=== PATIENT | female | born 1930 | race Caucasian/White ===

== ENCOUNTER 2017-10-31 10:26 | Observation (INO) | payer MEDICARE, OTHER ==
[2017-10-31 10:51] LABS: #Eosinphils 0.3 thou/uL (0.0-0.7); #Lymphocytes 1.9 thou/uL (1.20-3.40); #Monocytes 1.1 thou/uL (0.11-0.59); #Neutrophils 5.8 thou/uL (1.40-6.50); %Basophils 0.2 % (0.0-1.0); %Eosinophils 3.3 % (0.0-10.0); %Lymphocytes 21.4 % (21.0-51.0); %Monocytes 11.6 % (0.0-10.0); %Neutrophils 63.6 % (42.0-75.0); Mean Corpuscular HGB CONC 30.7 g/dL (32.0-36.0); Mean Corpuscular Hemoglobin 27.4 pg (27.0-31.0); Mean Corpuscular Volume 89.2 fl (81.0-99.0); Mean Platelet Volume 7.5 fL (7.4-10.4); Platelet Count 305 thou/uL (130-400); Red Blood Cell (RBC) Count 4.75 mill/uL (4.20-5.40); White Blood Cell (WBC) Count 9.1 thou/uL (4.8-10.8)
[2017-10-31 10:59] LABS: INR-International Normal Ratio 1.1; Prothrombin Time 13.8 SEC (12.0-14.7)
[2017-10-31 11:00] LABS: PTT 36.8 SEC (22.9-36.1)
--- NOTE | 2017-10-31 11:16 | RAD ---
CHEST ONE VIEW: History: Chest pain. Comparison: 06-14-17 FINDINGS: Heart size is at upper limits of normal. Lungs are mildly hyperinflated. No focal airspace consolidat ion, pneumothorax or effusion. No displaced rib fracture. IMPRESSION: No acute intrathoracic abnormality. No significant change. POS: OFF
[2017-10-31 11:18] LABS: ALT (SGPT) 8 U/L (8-55); AST (SGOT) 20 U/L (5-34); Albumin 3.7 g/dL (3.4-4.8); Alkaline Phosphatase 63 U/L (40-150); Anion Gap 13 mmol/L (10-20); BUN (Urea Nitrogen) 23 mg/dL (9.8-20.1); Bilirubin, Total 0.4 mg/dL (0.2-1.2); CK (CPK) 141 U/L (29-168); Calc. Creatinine Clearance 0 mL/min (70-130); Calcium 9.5 mg/dL (7.8-10.44); Carbon Dioxide 24 mmol/L (23-31); Chloride 104 mmol/L (98-107); Estimated GFR-MDRD 46; Globulin 3.4 g/dL (2.4-3.5); Glucose 86 mg/dL (83-110); Lipase 47 U/L (8-78); Protein, Total 7.1 g/dL (6.0-8.3); Sodium 137 mmol/L (136-145)
[2017-10-31 11:22] LABS: Troponin I Less than 0.010 ng/mL (< 0.028)
[2017-10-31] MEDS ORDERED: Aspirin 325 MG TAB ONE (13:21)
[2017-10-31] MEDS ORDERED: Nitroglycerin 2% Ointment 1 INCH/1 GM Packet ONE (13:21)
[2017-10-31 14:22] LABS: Troponin I Less than 0.010 ng/mL (< 0.028)
[2017-10-31] MEDS ORDERED: Nitroglycerin 0.4 MG TAB (25 Tab Bottle) PO PRN (14:49)
[2017-10-31] MEDS ORDERED: Dextrose 50% Abboject 50 ML SYRINGE SLOW IVP PRN (14:49)
[2017-10-31] MEDS ORDERED: hydrALAZINE 20 MG/ML VIAL SLOW IVP PRN (14:49)
[2017-10-31] MEDS ORDERED: Senokot 8.6 MG TAB PO PRN (14:49)
[2017-10-31] MEDS ORDERED: Insulin Regular 300 UNITS/3 ML VIAL SC PRN ×2 (14:49)
[2017-10-31] MEDS ORDERED: Dextrose 5% in Water 1,000 ML IV PRN (14:49)
[2017-10-31] MEDS ORDERED: Labetalol HCl 100 MG/20 ML VIAL SLOW IVP PRN (14:49)
[2017-10-31] MEDS ORDERED: Ondansetron ODT 4 MG TAB PO PRN (14:49)
[2017-10-31] MEDS ORDERED: Ondansetron HCl/PF 4 MG/2 ML Vial IVP PRN (14:49)
--- NOTE | 2017-10-31 17:48 | HP ---
DATE OF ADMISSION: 10/31/2017 PRIMARY CARE PHYSICIAN: Dr. Raygoza. CHIEF COMPLAINT: Chest discomfort. HISTORY OF PRESENT ILLNESS: Patient is an 87-year-old female with coronary artery disease, status po st [place] in 2008, hypertension, and hyperlipidemia. She presented to the emergency room with chest disc omfort. The chest discomfort started yesterday around 3:00 p.m. while she was resting. It was subst ernal, radiating to her left arm. She also had some shortness of breath at the same time. No lighth eadedness, dizziness, palpitations, or syncope reported. She denies any recent immobilization and tr abby. She denies any heartburn or dyspepsia. In the emergency room, her initial vital signs showed temperature 98.2, respirations 16, pulse rate o f 77 with blood pressure 153/72 with O2 saturation of 97% on room air. Her initial EKG showed sinus rhythm with PVCs, first degree AV block with IL interval of 212-millisecond without significant ST-T wave changes. She received aspirin with 1 inch nitro patch in the emergency room. She is chest pain free at this time. PAST MEDICAL HISTORY: 1. Coronary artery disease, status post TX in 2008. 2. Anxiety, depression. 3. Hypertension. 4. Hyperlipidemia. 5. History of syncope secondary to dehydration in 2011. 6. CKD stage 3. 7. Macular degeneration. PAST SURGICAL HISTORY: 1. Back surgery. 2. Bilateral cataract surgery. 3. Cardiac catheterization in 2008 at [facility] in [place]. Report is unavailable at this ti me. ALLERGIES: Patient is allergic to PENICILLIN, SULFA, HYDROCODONE, DIAZEPAM, CODEINE, and XANAX. CURRENT HOME MEDICATIONS: The patient does not remember any home medications. We will try to call [facility] facility for accurate list of medications. FAMILY HISTORY: Mother of complications from diabetes. Father of TX at age of 61. SOCIAL HISTORY: Patient currently lives in a long-term nursing facility. No smoking, alcohol or gabby g use reported. CODE STATUS: FULL CODE and makes a decision with the help of her family. Please note there is no fa soham at the bedside at this time. PHYSICAL EXAMINATION: VITAL SIGNS: As discussed above. GENERAL: An 87-year-old female in no apparent distress. Denies any chest discomfort at this time. HEENT: Head is atraumatic, normocephalic, sclerae are anicteric. Moist mucous membrane, no oral les ion. NECK: Supple, no JVD appreciated. No carotid bruit. LUNGS: Clear to auscultation bilaterally. No wheezing, rales or rhonchi. HEART: S1, S2 present. Regular rate and rhythm, 2/6 systolic ejection murmur over the aortic area. No parasternal heaves or pulsation. ABDOMEN: Soft, nontender, bowel sounds present. EXTREMITIES: No edema or calf tenderness. NEUROLOGIC: Grossly nonfocal, moves all four extremities. PSYCHIATRY: Alert, awake, oriented x3. SKIN: Warm and dry. LYMPH NODES: No palpable lymph nodes in the neck. PERIPHERAL VASCULAR: Radial pulses palpable bilaterally. MUSCULOSKELETAL: No joint swelling or tenderness. LABORATORY FINDINGS: CBC showed WBC of 9.1 with hemoglobin of 13, platelet count 305. Chemistries s howed sodium 137, potassium 4, chloride 104, bicarbonate 24, BUN 23, creatinine 1.12, glucose 86. Tr oponins were negative. Chest x-ray by my review was negative for infiltrate. EKG by my review as jo-ann stewartussed above. IMPRESSION: 1. Chest discomfort, rule out acute coronary syndrome. 2. Coronary artery disease, status post myocardial infarction in 2008. 3. Hypertension. 4. Hyperlipidemia. 5. Gastroesophageal reflux disease. 6. Dementia. 7. Chronic kidney disease stage 3. 8. Hypothyroidism. 9. Macular degeneration. PLAN: The patient will be monitored in the telemetry unit. Cardiology will be consulted. She had a n echocardiogram in 2015 that showed moderate tricuspid valve regurgitation and moderate mitral valve regurgitation. The ejection fraction was normal at that time. She also had a stress test in which was negative for reversible ischemia. No wall motion abnormality. We will confirm home medi cations and start accordingly. Patient was on Plavix last admission. Cardiology will be consulted. We will try to obtain an accurate list of medications accurate list of medications. The patient karen l be kept n.p.o. past midnight for possible intervention if patient agrees. She was admitted in [facility] in she was admitted in June of last year for similar complaint. Patient declined cardiac c atheterization at that time. Plan of care was discussed with the patient in detail. She stated understanding.
[2017-10-31] MEDS: Docusate 100 MG CAP PO SCH (21:05)
[2017-10-31] MEDS: Famotidine 20 MG TAB PO SCH (21:06)
[2017-11-01] MEDS: Acetaminophen 325 MG TAB PO PRN (01:09)
[2017-11-01 05:20] LABS: #Eosinphils 0.2 thou/uL (0.0-0.7); #Lymphocytes 1.4 thou/uL (1.20-3.40); #Monocytes 0.8 thou/uL (0.11-0.59); #Neutrophils 3.3 thou/uL (1.40-6.50); %Basophils 0.8 % (0.0-1.0); %Eosinophils 4.3 % (0.0-10.0); %Lymphocytes 24.6 % (21.0-51.0); %Monocytes 13.4 % (0.0-10.0); Hemoglobin 12.5 g/dL (12.0-16.0); Mean Corpuscular HGB CONC 30.9 g/dL (32.0-36.0); Mean Corpuscular Hemoglobin 27.6 pg (27.0-31.0); Mean Corpuscular Volume 89.1 fl (81.0-99.0); Mean Platelet Volume 7.9 fL (7.4-10.4); Platelet Count 282 thou/uL (130-400); RBC Distribution Width 13.9 % (11.5-14.5); Red Blood Cell (RBC) Count 4.54 mill/uL (4.20-5.40); White Blood Cell (WBC) Count 5.9 thou/uL (4.8-10.8)
[2017-11-01 05:33] LABS: Anion Gap 12 mmol/L (10-20); BUN (Urea Nitrogen) 23 mg/dL (9.8-20.1); Calc. Creatinine Clearance 34 mL/min (70-130); Calcium 9.3 mg/dL (7.8-10.44); Carbon Dioxide 24 mmol/L (23-31); Chloride 105 mmol/L (98-107); Estimated GFR-MDRD 46; Glucose 87 mg/dL (83-110); Potassium 4.1 mmol/L (3.5-5.1); Sodium 137 mmol/L (136-145)
[2017-11-01] MEDS: Docusate 100 MG CAP PO SCH ×2 (08:23→20:38)
[2017-11-01] MEDS ORDERED: Aspirin 81 mg Enteric Coated Tablet PO SCH (09:00)
[2017-11-01] MEDS ORDERED: Polyethylene Glycol 3350 17 GM Packet PO PRN (09:16)
[2017-11-01] MEDS ORDERED: Clopidogrel Bisulfate 75 MG TAB PO SCH (09:45)
[2017-11-01] MEDS ORDERED: Gabapentin 300 MG CAP PO SCH (09:45)
--- NOTE | 2017-11-01 13:57 | PDOC.PN ---
- Subjective Encounter Start Date: 11/01/17 Encounter Start Time: 10:30 Patient seen and examined. No new complaints. No overnight events. Denies any CP /SOB/diaphoresis/palpitations. - Objective Resuscitation Status: Resuscitation Status FULL:Full Resuscitation MAR Reviewed: Yes Vital Signs & Weight: Vital Signs (12 hours) Temp Pulse Resp BP BP Pulse Ox 11/01/17 11:52 98.5 F 70 16 102/55 L 97 11/01/17 08:00 98.3 F 66 16 121/59 L 92 L 11/01/17 04:00 97.9 F 64 20 121/57 L 95 Weight Weight 136 lb 8 oz I&O: 10/31/17 11/01/17 11/02/17 06:59 06:59 06:59 Intake Total 535 Output Total 750 Balance -215 Result Diagrams: 11/01/17 04:39 11/01/17 04:39 Additional Labs: Accuchecks 11/01/17 10/31/17 10/31/17 11:19 20:42 16:31 POC Glucose 103 185 H 119 H EKG Reviewed by me: Yes (Tele SR) Phys Exam - Physical Examination Constitutional: NAD Neck: no JVD Respiratory: no wheezing, no rales, no rhonchi, clear to auscultation bilateral Cardiovascular: RRR, no rub no heaves/pulsations Gastrointestinal: soft, non-tender, no distention, positive bowel sounds Musculoskeletal: no edema Neurological: non-focal, normal sensation, moves all 4 limbs Psychiatric: A&O x 3 Dx/Plan - Plan DVT proph w/SCDs IMPRESSION: 1. Chest discomfort, rule out acute coronary syndrome. 2. Coronary artery disease, status post myocardial infarction in 2008. 3. Hypertension. 4. Hyperlipidemia. 5. Gastroesophageal reflux disease. 6. Dementia. 7. Chronic kidney disease stage 3. 8. Hypothyroidism. 9. Macular degeneration. PLAN: * Await Cardio input * Home meds restarted * Cont Plavix * DC ASA (Patient does not take Aspirin at home) * NPO * Split BP med dosage while in the hospital * Cont other meds as below Review of Systems - Review of Systems Respiratory: negative: Cough, Dry, Shortness of Breath, Hemoptysis, SOB with Excertion, Pleuritic Pain, Sputum, Wheezing Cardiovascular: negative: chest pain, palpitations, orthopnea, paroxysmal nocturnal dyspnea, edema, light headedness Gastrointestinal: negative: Nausea, Vomiting, Abdominal Pain, Diarrhea, Constipation, Melena, Hematochezia - Medications/Allergies Allergies/Adverse Reactions: Allergies Allergy/AdvReac Type Severity Reaction Status Date / Time alprazolam [From Xanax] Allergy Verified 06/14/17 21:13 codeine Allergy Verified 08/23/16 09:45 diazepam Allergy Verified 08/23/16 09:45 hydrocodone Allergy Verified 08/23/16 09:45 Penicillins Allergy Verified 08/23/16 09:45 Sulfa (Sulfonamide Allergy Verified 08/23/16 09:45 Antibiotics) Medications: Current Medications Acetaminophen (Tylenol) 650 mg PO Q4H PRN PRN Reason: Headache/Fever or Pain Last Admin: 11/01/17 01:09 Dose: 650 mg Albuterol/Ipratropium (Duoneb) 3 ml NEB Q4H PRN PRN Reason: SOB &/or Wheezing Amlodipine Besylate (Norvasc) 5 mg PO BID [facility] Atorvastatin Calcium (Lipitor) 20 mg PO HS [facility] Citalopram Hydrobromide (Celexa) 20 mg PO HS [facility] Clopidogrel Bisulfate (Plavix) 75 mg PO DAILY [facility] Dextrose/Water (Dextrose 50%) 25 gm SLOW IVP PRN PRN PRN Reason: Hypoglycemia Docusate Sodium (Colace) 100 mg PO BID [facility] Last Admin: 11/01/17 08:23 Dose: 100 mg Famotidine (Pepcid) 20 mg PO 2100 [facility] Last Admin: 10/31/17 21:06 Dose: 20 mg Gabapentin (Neurontin) 600 mg PO BID [facility] Glucagon (Glucagon) 1 mg IM PRN PRN PRN Reason: Hypoglycemia Hydralazine HCl (Apresoline) 10 mg SLOW IVP Q4H PRN PRN Reason: SBP Greater Than 180 Dextrose/Water (D5w) 1,000 mls @ 0 mls/hr IV .Q0M PRN; As Directed PRN Reason: Hypoglycemia Insulin Human Regular (Humulin R) 0 units SC .MILD SLIDING SCALE PRN PRN Reason: Mild Correctional Scale Insulin Human Regular (Humulin R) 0 units SC .BEDTIME SLIDING SC PRN PRN Reason: Bedtime Correctional Scale Isosorbide Mononitrate (Imdur Er) 30 mg PO DAILY [facility] Labetalol HCl (Normodyne) 10 mg SLOW IVP Q4H PRN PRN Reason: Systolic BP > 180 Levothyroxine Sodium (Synthroid) 50 mcg PO 0600 [facility] Lisinopril (Zestril) 10 mg PO BID [facility] Memantine (Namenda) 10 mg PO BID [facility] Multivitamins (Theragran) 1 tab PO DAILY [facility] Nitroglycerin (Nitrostat) 0.4 mg PO Q5MIN PRN PRN Reason: Chest Pain Ondansetron HCl (Zofran Odt) 4 mg PO Q6H PRN PRN Reason: Nausea/Vomiting Last Admin: 11/01/17 01:10 Dose: 4 mg Ondansetron HCl (Zofran) 4 mg IVP Q6H PRN PRN Reason: Nausea/Vomiting Polyethylene Glycol (Miralax) 17 gm PO DAILY PRN PRN Reason: Constipation Senna (Senokot) 2 tab PO HSPRN PRN PRN Reason: Constipation Sodium Chloride (Flush - Normal Saline) 10 ml IVF PRN PRN PRN Reason: Saline Flush
--- NOTE | 2017-11-01 15:37 | CON ---
DATE OF CONSULTATION: 11/01/2017 ROOM NO: 246. PRIMARY CARE PHYSICIAN: Dr. Raygoza. PRIMARY PRODUCT SAFETY COORDINATOR: Dr. Sixto Hernandez. REASON FOR CARDIOLOGY CONSULTATION: Chest pain. HISTORY OF PRESENT ILLNESS: Ms. Trotter is 87-year-old female with significant history of coronary artery disease, hypertension, hyperlipidemia, and mild dementia. She lives in the halfway at this moment. The patient presented to the emergency department for heaviness-like discomfort to midsternal area with dullness-like pain to the left arm and intermittent nausea. She has a long history of chest pain. She had been here in and out of the hospital quite sometimes. She has been seen by Dr. Hernandez for her chest pain and other cardiac symptoms. She has not had any stress test lately because no transportation arrangement were made from halfway. Also she refused to undergo Cardiac catheterization at last admission. However, this time she is willing to have a stress test or cardiac catheterization if possible. She denies dizziness, lightheadedness, shortness of breath, diaphoresis, or any other cardiac symptoms; however, she experiences short- winded easily lately. Her last stress test was in 03/2016, which shows normal myocardial perfusion study with EF of 71%. Her last echocardiogram was in 03/2016, which shows EF of 50% to 55%, mild aortic valve regurgitation, moderate mitral valve regurgitation, and left atrial enlargement. The patient had a history of myocardial infarction and left cardiac catheterization in 2008 in [place], which reveals some disease; however, no intervention was done at that time. This admission, the patient's cardiac enzyme have been negative. She is still complaining of dullness to left arm, but she denies any heaviness or chest pain to her midsternal area or to the left chest at this moment. PAST MEDICAL HISTORY: The patient's cardiac medical history: 1. Coronary artery disease and history of cardiac catheterization in 2008 with no intervention. 2. Hypertension. 3. Dyslipidemia. 4. Diabetes type 2. 5. Chronic back pain. 6. Hypothyroidism. 7. Chronic kidney disease stage 3. 8. Mild dementia. PAST SURGICAL HISTORY: 1. Left cardiac catheterization in 2008 without any intervention. 2. Bilateral cataract surgery. 3. Back surgery x2. 4. Bilateral ankle fracture. FAMILY HISTORY: Family history of diabetes is in her maternal side. The patient's father had a history of heart disease. SOCIAL HISTORY: She lives in a halfway. Her son lives close by and well. She denies smoking, alcohol abuse, or illicit drug abuse. ALLERGIES: She is allergic to SULFA, PENICILLIN, DILTIAZEM, HYDROCODONE. HOME MEDICATIONS: Simvastatin 40 mg once a day, Namenda 10 mg twice a day, Plavix 75 mg once a day, albuterol 2 puffs every 4 hours as needed, Tylenol 325 one 1-2 tablets every 6 hours as needed, loperamide 2 mg as needed, Celexa 20 mg once a day, metformin 500 mg twice a day, guaifenesin DM 10 mL every 6 hours as needed, levothyroxine 50 mcg daily, MiraLax 17 grams p.o. daily as needed, Neurontin 600 mg twice a day, Norvasc 10 mg once a day, multivitamin once a day , Lasix 20 mg once a day, Imdur 30 mg once a day, lisinopril 20 mg once a day. REVIEW OF SYSTEMS: The following complete review of systems was negative, unless otherwise mentioned in the HPI or below. Constitutional: Weight loss or gain, sense of well-being, ability to conduct usual activities, exercise tolerance. She uses a walker. Skin: Rash, itching, change in hair growth or loss, nail changes, breast lumps , tenderness, swelling, nipple discharge. Eyes: No vision, double vision, tearing, blind spots, pain. HENT: Headache, vertigo, lightheadedness, nose bleeding, cold, obstruction or discharge, dental difficulty, gingival bleeding, neck stiffness, pain, tenderness, mass in the thyroid or other areas. Cardiovascular: Palpitations, syncope, dyspnea on exertion, orthopnea, nocturnal dyspnea, edema, cyanosis, heart murmur, varicosis, claudication. Respiratory: Shortness of breath, wheezing, stridor, cough, hemoptysis. Gastrointestinal: Poor appetite, dysphagia, abdominal pain, heartburn, nausea, vomiting, abnormal stool, recent change in the bowel habit. Genitourinary: Urgency, frequency, dysuria, nocturia, hematuria, polyuria, oliguria, unusual color of urine. Musculoskeletal: Pain, swelling, redness or heat of the muscle or joint, limitation of motion, muscular weakness, atrophy, cramps. Neurologic: Seizure, convulsion, paralyze, tremor, incoordination. Psychiatric: Emotional problem. Previous psychiatric care, unusual perceptions , hallucinations. PHYSICAL EXAMINATION: VITAL SIGNS: Blood pressure 102/55, heart rate 70 and sinus rhythm, respiratory rate 16, O2 sat 97%, temperature 98.5. GENERAL: Well-developed and well-nourished without acute distress. HEAD: Normocephalic, atraumatic. EYES: Extraocular muscle movement intact. ENT: Oral and nasal mucosa are moist without lesion. NECK: No JVD. Neck supple and normal range of motion. LUNGS: Clear to auscultation bilaterally. No wheezing, rales or rhonchi noted. CARDIOVASCULAR: Regular rate and rhythm. Normal S1, S2. There are no S3 or S4. No significant murmur, hives, thrill, bruits or rub noted. There is 2+ in bilateral dorsal pedis, posterior tibial and popliteal. Carotid pulse present without bruit or thrill. No edema in bilateral lower extremities. ABDOMEN: Soft, nontender. All mass to palpate, nondistended. Bowel sounds are present. MUSCULOSKELETAL: Able to move all extremities. No calf tenderness. SKIN: Warm and dry. No skin rash or lesion bruise noted. NEUROLOGIC: Alert, oriented x4, awake, normal affect, nonfocal present and some mild dementia. PSYCHIATRIC: Mood and affect normal. EKG: A 12-lead EKG in the ER revealed sinus rhythm with first degree AV block and frequent PVCs and the heart rate 76. LABORATORY DATA: WBC 5.9, hemoglobin 12.5, hematocrit 40.5. Sodium 137, potassium 4.1, BUN 23, creatinine 1.11, glucose 87, CK-MB 1.0, troponin less than 0.010 x3 and AST 20, ALT 8. The patient's chest x-ray showed no acute intrathoracic abnormality. PLAN: 1. Heaviness-like chest pain. The patient's EKG and troponin have been normal. We would like to order a stress test tomorrow for now, but we like to defer to Dr. Hernandez's decision. 2. Coronary artery disease with a history of CT and left heart catheterization in 2008 without any intervention. The patient's condition stable. We would like to continue to monitor on the telemetry. 3. Hypertension. The patient's blood pressure has been stable with current medication. We would like to adjust as appropriate. 4. Hyperlipidemia. The patient on a statin. 5. Chronic kidney disease stage 3. The patient's creatinine level is stable at this moment. We would like to continue to monitor. 6. Gastroesophageal reflux disease. The patient's condition is stable at this moment and managed by primary care doctor. 7. Mild dementia. The patient's condition is stable. 8. Hypothyroidism. The patient is on levothyroxine, which is managed by primary care. Thank you very much for allowing Cardiology Service to participate in the care of this patient. We will follow along with the patient care team and make further recommendations as appropriate. FRANK
[2017-11-01 16:06] VITALS: BMI 28.3
[2017-11-01] MEDS: Gabapentin 300 MG CAP PO SCH (20:38)
[2017-11-01] MEDS: Lisinopril 10 MG TAB PO SCH (20:38)
[2017-11-01] MEDS: Famotidine 20 MG TAB PO SCH (20:38)
[2017-11-01] MEDS: Amlodipine 5 MG TAB PO SCH (20:39)
[2017-11-01] MEDS ORDERED: Simvastatin 40 MG TAB PO SCH (21:00)
[2017-11-01] MEDS ORDERED: Atorvastatin Calcium 20 MG TAB PO SCH (21:00)
[2017-11-01] MEDS ORDERED: Citalopram 20 MG TAB PO SCH (21:00)
--- NOTE | 2017-11-01 22:04 | CON ---
DATE OF ADMISSION: 10/31/2017 DATE OF CONSULTATION: 11/01/2017 INDICATION FOR CONSULTATION: An 87-year-old female with chest pain. HISTORY OF PRESENT ILLNESS: Please refer to the notes already dictated by the nurse practitioner. S he is a very pleasant 87-year-old female has been followed by one of my partners, Dr. Hernandez. She is 87 years old, apparently has had 1 or 2 myocardial infarctions in the past when she was in [place]. She has been admitted and seen several times for chest pain and shortness of breath. She resides in a skilled nursing. She again had some shortness of breath and chest discomfort with some nausea, which lasted about half an hour and she then presented to the emergency room. There was no radiation of t he discomfort. She describes mainly as being heaviness. She has had no particular problems since be ing in the hospital. She had a cardiac catheterization in 2008, which according to the patient had n o significant stenosis. She has had no interventions performed and she has had no bypass surgery. A ccording to other records from the hospital here, it sounds as if she had a cardiac catheterization, but there was no intervention possible. We will await the records from the hospital in [place] to de termine if the disease extend is too bad for intervention, whether or not it is not significant enoug h to undergo angioplasty or stent placement or even bypass surgery. Given her age of [age] years old an d no significant EKG changes and enzymes are negative and we would continue to follow her. Dr. Hua foley will resume her care tomorrow, but at this time it does not appear that she has had any acute event . She does have an EKG what appears to be bigeminy, but has sinus rhythm with PVCs interventional ty pe pattern. Otherwise, she does have what appears to be bradycardia if she did not have the PVCs. O therwise, she has been doing quite well since she has been in the hospital and has no further complai nts at this time. PHYSICAL EXAMINATION: GENERAL: Reveals a well-developed, well-nourished elderly patient who does have some memory problems . She denied seeing marketing database coordinator in the past since she left [place], but apparently has been seen on a couple of occasions and also has been in the office for visit. VITAL SIGNS: Her blood pressure is 103/55, heart rate is 74 and regular at this time, respiratory ra te 16. She is afebrile. HEENT: Shows the head to be normocephalic, atraumatic. I did not hear any significant bruits. CHEST: Clear to auscultation. There are no rales, rhonchi or wheezing. CARDIOVASCULAR: Reveals a regular rate and rhythm at this time and S1, S2. There were no significan t murmurs, heaves, thrills, bruits or rubs. ABDOMEN: Soft and nontender with positive bowel sounds. EXTREMITIES: Showed no clubbing or cyanosis. There is no lower extremity edema. Pedal pulses are p resent. NEUROLOGIC: The patient appears to be intact except for some dementia, forgetfulness. Her EKG shows a sinus rhythm with as noted above with frequent PVCs in a bigeminal type pattern, but the normal EKG does not show any acute ST segment elevation. She does have decreased R-wave progress ion in V1 through V3, which could be compatible with old myocardial infarction. Laboratory data is unremarkable for any acute myocardial infarction. Her hemoglobin is 12.5. Her tr oponin I is negative. Creatinine is 1.12 and her blood sugar was 119. At this time, we will continu e to follow her. I will try to determine if she has had any recent echocardiogram or stress testing. According to the records, she was supposed to be seen previously earlier in the office, but the allen ointments had been cancelled and I believe echocardiogram was still pending at that time and this may need to be ordered while she is in the hospital since her followups have not been punctual. Overall , she seems to be doing quite well. As far as the other assessment and plan, please refer to the notes dictated by the nurse practitioner for her other problems such as diabetes, hypertension, and dyslipidemia as well as her hypothyroidis m. She did have an echocardiogram in 04/2016, which showed ejection fraction of 50% to 55% with some mod erate aortic and mitral valve regurgitation. She had a stress test in 03/2016, which showed no ische da and ejection fraction of 71%.
[2017-11-02] MEDS: Acetaminophen 325 MG TAB PO PRN (04:54)
[2017-11-02] MEDS ORDERED: Non-Formulary Item 1 EACH (Levothyroxine Sodium [Tirosint] 50 MCG) PO SCH (06:00)
[2017-11-02] MEDS ORDERED: Levothyroxine Sodium 50 MCG TAB PO SCH (06:00)
[2017-11-02] MEDS ORDERED: Multivit, Therapeutic 1 TAB PO SCH (09:00)
[2017-11-02] MEDS ORDERED: Non-Formulary Item 1 EACH (Multivitamin [Multivitamins] 1 CAP) PO SCH (09:00)
[2017-11-02] MEDS ORDERED: Clopidogrel Bisulfate 75 MG TAB PO SCH (09:00)
[2017-11-02] MEDS ORDERED: Lisinopril 20 MG TAB PO SCH (09:00)
[2017-11-02] MEDS ORDERED: Amlodipine 10 MG TAB PO SCH (09:00)
[2017-11-02] MEDS: Gabapentin 300 MG CAP PO SCH (10:30)
[2017-11-02] MEDS: Docusate 100 MG CAP PO SCH (10:30)
[2017-11-02] MEDS: Amlodipine 5 MG TAB PO SCH (10:30)
[2017-11-02] MEDS: Lisinopril 10 MG TAB PO SCH (10:31)
[2017-11-02] MEDS ORDERED: Regadenoson 0.4 MG/5 ML SYRINGE ONE (12:17)
[2017-11-02 12:44] VITALS: TEMP 97.3
--- NOTE | 2017-11-02 15:36 | NM ---
RADIONUCLIDE STRESS REST MYOCARDIAL PERFUSION SCAN WITH CT ATTENUATION CORRECTION AND SPECT IMAGING LEFT VENTRICULAR WALL MOTION EVALUATION AND EJECTION FRACTION 11/02/17 HISTORY: Chest pain. FINDINGS: Lexiscan protocol was used. There is homogeneous uptake of radiotracer throughout the left ventricular myocardium on the stress a nd rest images. No focal perfusion defect or reversibility are visible. QGS analysis of gated SPECT images shows no focal wall motion abnormalities. Left ventricular ejectio n fraction is calculated at 73%. IMPRESSION: 1. Normal myocardial perfusion scan showing no evidence of ischemia. 2. Normal LVEF. POS: JEANINE
[2017-11-02 16:34] VITALS: BP 147/69
--- NOTE | 2017-11-02 16:34 | DIS ---
DATE OF DISCHARGE: 11/02/2017 DISCHARGE DISPOSITION: Back to nursing facility. ALLERGIES: The patient is allergic to SULFA, PENICILLIN, HYDROCODONE, DIAZEPAM, CODEINE, XANAX. The patient was seen and examined on the day of discharge. Denies any new complaints. No chest pain , shortness of breath or palpitations reported. Vital signs on the day of discharge showed temperatu re 97.3, pulse rate of 87, blood pressure 130/62 with respirations 18, and O2 saturation 97% on room air. INPATIENT CONSULTANTS: Cardiology, Dr. Sixto Hernandez. BRIEF HOSPITAL COURSE: The patient is an 87-year-old female with coronary artery disease, status pos t [place] in 2008, presented to the hospital with chest discomfort. Please refer to the history and physi alexandre dated 10/31/2017 for further details. The patient was admitted to the hospital with the diagnosis of chest discomfort, rule out acute coron claudia syndrome. Serial cardiac enzymes were negative. The patient was seen by Cardiology, Dr. Hayden Hernandez. She underwent a stress test that was negative for reversible ischemia. Ejection fraction was 73% without any wall motion abnormality. The patient will be discharged back to the nursing faci lity. A prescription for sublingual nitroglycerin as needed will be provided. No changes in her med ications were made. FINAL DIAGNOSES: 1. Chest discomfort, acute coronary syndrome, ruled out. 2. Negative Cardiolite stress test. 3. Coronary artery disease, status post myocardial infraction in 2008. 4. Hypertension. 5. Hyperlipidemia. 6. Gastroesophageal reflux disease. 7. Dementia. 8. Chronic kidney disease stage 3. 9. Hypothyroidism. 10. Macular degeneration. Plan of care was discussed with the patient in detail. She stated understanding. Please note there was no family at the bedside.
--- NOTE | 2017-11-02 17:46 | PDOC.CTH ---
Cardiology Progress Note - Subjective She is currently chest pain free. - Objective Vital Signs Temp Pulse Resp BP BP BP Pulse Ox 11/02/17 16:33 82 147/69 H 11/02/17 16:00 97.3 F L 80 18 192/82 H 95 11/02/17 12:43 97.3 F L 87 18 130/62 97 11/02/17 10:31 121/57 L 11/02/17 10:30 69 11/02/17 07:42 97.5 F L 69 16 11/02/17 07:31 98.0 F 63 16 130/62 99 Weight 140 lb 11/01/17 11/02/17 11/03/17 06:59 06:59 06:59 Intake Total 535 930 240 Output Total 750 100 Balance -215 830 240 - Physical Examination General/Neuro: alert & oriented x3, NAD Neck: no JVD present Lungs: unlabored respirations Heart: RRR Abdomen: NT/ND Extremities: other: (no edema) - Telemetry Telemetry Rhythm: NSR - Labs Result Diagrams: 11/01/17 04:39 11/01/17 04:39 Troponin/CKMB CK-MB (CK-2) 1.0 ng/mL (0-6.6) 10/31/17 10:44 Troponin I 0.010 ng/mL (< 0.028) 10/31/17 16:40 - Assessment/Plan 1. Chest pain PLAN: - Atypical. - Normal stress test today. - May discharge home - Follow up in my clinic in 1 month.
--- NOTE | 2018-01-19 21:06 | STRESS ---
Acquisition Time: 2017-11-02 12:10:51 Total Exercise Time: 00:01:00 Test Indications: CHEST PAIN Medications: Protocol: LEXISCAN Max HR: 086 BPM 65% of Pred: 132 BPM Max BP: 116/064 mmHG Max Work Load: 1.0 METS RESTING ECG: NORMAL SINUS RHYTHM AT 64 BPM WITH FIRST DEGREE AV BLOCK; FREQUENT PVC'S AND OCCASIONAL PAC'S SYMPTOMS: NONE NORMAL BP RESPONSE ECTOPY: FREQUENT PVC'S (BIGEMINY) ECG STRESS: NO SIGNIFICANT CHANGES INTERPRETATION: NEGATIVE ECG/AWAIT NUCLEAR IMAGES FOR DEFINITIVE DIAGNOSIS Confirmed by CECILIA HOLLINS MD ([id number]) on 01/19/2018 9:05:49 PM Referred By: BHAVIN HEATH Confirmed By:CECILIA HOLLINS MD
== END 2017-11-02 18:45 ==
LOC: ERS 10:26 → 2SW 12:25
PROVIDERS: ADMIT Internal Medicine; ATTEND Internal Medicine
DX: R07.89 Other chest pain (principal); I25.10 Atherosclerotic heart disease of native coronary artery without angina pectoris; I25.2 Old myocardial infarction; E78.5 Hyperlipidemia, unspecified; K21.9 Gastro-esophageal reflux disease without esophagitis; F03.90 Unspecified dementia, unspecified severity, without behavioral disturbance, psychotic disturbance, mood disturbance, and anxiety; E11.22 Type 2 diabetes mellitus with diabetic chronic kidney disease; I12.9 Hypertensive chronic kidney disease with stage 1 through stage 4 chronic kidney disease, or unspecified chronic kidney disease; N18.3 Chronic kidney disease, stage 3 (moderate); E03.9 Hypothyroidism, unspecified; H35.30 Unspecified macular degeneration; F41.9 Anxiety disorder, unspecified; F32.9 Major depressive disorder, single episode, unspecified; Z79.84 Long term (current) use of oral hypoglycemic drugs; Z79.02 Long term (current) use of antithrombotics/antiplatelets; Z79.899 Other long term (current) drug therapy; Z88.5 Allergy status to narcotic agent; Z88.0 Allergy status to penicillin; Z88.2 Allergy status to sulfonamides; Z88.8 Allergy status to other drugs, medicaments and biological substances; Z98.41 Cataract extraction status, right eye; Z98.42 Cataract extraction status, left eye; Z98.890 Other specified postprocedural states; Z87.81 Personal history of (healed) traumatic fracture; Z82.49 Family history of ischemic heart disease and other diseases of the circulatory system
CPT/HCPCS: 71045; 78452; 80048; 80053; 82550; 82553; 82962 ×3; 83690; 83735; 84484 ×2; 85025 ×2; 85610; 85730; 93005; 93017; 94760; 97139; 99285; A9500; G0378 ×2; 36415; 36416; J2785; Q0162

== ENCOUNTER 2018-02-16 12:52 | Emergency (ER) | payer MEDICARE, OTHER ==
--- NOTE | 2018-02-16 13:18 | RAD ---
FRONTAL VIEW CHEST: Date: 02/16/18 COMPARISON: 10/31/17 CLINICAL INDICATION: Chest pain. FINDINGS: Lungs are clear of consolidation. There is mild elevation of right hemidiaphragm. Cardiac silhouette is accentuated by technique. Vascular structures at each hilum are grossly stable. IMPRESSION: Stable chest, without evidence of focal consolidation. POS: [facility]
[2018-02-16 13:23] LABS: #Basophils 0.1 thou/uL (0.0-0.2); #Eosinphils 0.2 thou/uL (0.0-0.7); #Lymphocytes 1.8 thou/uL (1.20-3.40); #Monocytes 1.1 thou/uL (0.11-0.59); #Neutrophils 5.5 thou/uL (1.40-6.50); %Basophils 0.7 % (0.0-1.0); %Eosinophils 2.4 % (0.0-10.0); %Lymphocytes 20.4 % (21.0-51.0); %Monocytes 13.2 % (0.0-10.0); %Neutrophils 63.3 % (42.0-75.0); Hemoglobin 13.2 g/dL (12.0-16.0); Mean Corpuscular HGB CONC 32.1 g/dL (32.0-36.0); Mean Corpuscular Hemoglobin 28.7 pg (27.0-31.0); Mean Corpuscular Volume 89.4 fl (81.0-99.0); Mean Platelet Volume 7.3 fL (7.4-10.4); Platelet Count 288 thou/uL (130-400); RBC Distribution Width 13.6 % (11.5-14.5); White Blood Cell (WBC) Count 8.7 thou/uL (4.8-10.8)
[2018-02-16 13:47] LABS: ALT (SGPT) 13 U/L (8-55); AST (SGOT) 23 U/L (5-34); Alkaline Phosphatase 91 U/L (40-150); Anion Gap 13 mmol/L (10-20); BUN (Urea Nitrogen) 28 mg/dL (9.8-20.1); Bilirubin, Total 0.4 mg/dL (0.2-1.2); CK (CPK) 169 U/L (29-168); Calc. Creatinine Clearance 0 mL/min (70-130); Calcium 9.7 mg/dL (7.8-10.44); Carbon Dioxide 24 mmol/L (23-31); Chloride 100 mmol/L (98-107); Estimated GFR-MDRD 43; Globulin 3.6 g/dL (2.4-3.5); Glucose 105 mg/dL (83-110); Lipase 88 U/L (8-78); Potassium 4.2 mmol/L (3.5-5.1); Protein, Total 7.6 g/dL (6.0-8.3); Sodium 133 mmol/L (136-145)
[2018-02-16 13:51] LABS: CKMB 1.4 ng/mL (0-6.6)
[2018-02-16] MEDS ORDERED: Nitroglycerin 2% Ointment 1 INCH/1 GM Packet ONE (14:01)
== END 2018-02-16 14:57 | disposition home or self-care (01) ==
LOC: ERS 12:52
DX: R07.9 Chest pain, unspecified (principal); F41.9 Anxiety disorder, unspecified; E11.40 Type 2 diabetes mellitus with diabetic neuropathy, unspecified; I25.10 Atherosclerotic heart disease of native coronary artery without angina pectoris; I10 Essential (primary) hypertension; E03.9 Hypothyroidism, unspecified; F32.9 Major depressive disorder, single episode, unspecified; K59.00 Constipation, unspecified; E78.00 Pure hypercholesterolemia, unspecified
CPT/HCPCS: 36415; 71045; 80053; 82550; 82553; 83690; 83880; 84484; 85025; 93005; 94760; 96360

== ENCOUNTER 2019-02-16 13:56 | Observation (INO) | payer MEDICARE, OTHER ==
--- NOTE | 2019-02-16 14:46 | RAD ---
Chest AP view INDICATION: Chest pain COMPARISON: February 16, 2018 FINDINGS: Lungs:The lungs are clear Cardiac silhouette pulmonary vasculature:Stable cardiomegaly. Stable vascular calcification of the ao rtic arch. Pulmonary vasculature appears within normal limits. Pleural spaces:Right costophrenic angle is excluded. Upper abdomen:No abnormality seen. Osseous structures: No acute osseous abnormality. Additional findings:None. IMPRESSION: No acute cardiopulmonary abnormality. Stable mild cardiomegaly.
--- NOTE | 2019-02-16 14:47 | RAD ---
Abdomen one view INDICATION: Abdominal distention COMPARISON: None FINDINGS: Bowel gas: Nonspecific but without overt appearance of obstruction. Lung bases: Clear. Additional findings: No suspicious calcification demonstrated. Osseous structures: No acute osseous abnormality is demonstrated. There is posterior lateral spinal i nstrumentation spanning L3-L5. There are mild vascular calcifications seen involving the visualized vasculature. IMPRESSION: 1. No acute abnormality.
[2019-02-16 14:54] LABS: #Eosinphils 0.2 thou/uL (0.0-0.7); #Lymphocytes 2.4 thou/uL (1.20-3.40); #Monocytes 1.4 thou/uL (0.11-0.59); #Neutrophils 6.6 thou/uL (1.40-6.50); %Basophils 0.3 % (0.0-1.0); %Eosinophils 2.2 % (0.0-10.0); %Lymphocytes 22.3 % (21.0-51.0); %Monocytes 13.3 % (0.0-10.0); Hemoglobin 13.1 g/dL (12.0-16.0); Mean Corpuscular HGB CONC 32.2 g/dL (32.0-36.0); Mean Corpuscular Volume 86.9 fL (78.0-98.0); Mean Platelet Volume 7.6 fL (7.4-10.4); Platelet Count 341 thou/uL (130-400); RBC Distribution Width 13.3 % (11.5-14.5); Red Blood Cell (RBC) Count 4.67 mill/uL (4.20-5.40); White Blood Cell (WBC) Count 10.6 thou/uL (4.8-10.8)
[2019-02-16 15:15] LABS: ALT (SGPT) 14 U/L (8-55); AST (SGOT) 23 U/L (5-34); Albumin 4.2 g/dL (3.4-4.8); Alkaline Phosphatase 88 U/L (40-150); Anion Gap 16 mmol/L (10-20); BUN (Urea Nitrogen) 37 mg/dL (9.8-20.1); Bilirubin, Total 0.4 mg/dL (0.2-1.2); Calc. Creatinine Clearance 0 mL/min (70-130); Calcium 9.9 mg/dL (7.8-10.44); Carbon Dioxide 22 mmol/L (23-31); Chloride 100 mmol/L (98-107); Estimated GFR-MDRD 33; Globulin 3.8 g/dL (2.4-3.5); Glucose 109 mg/dL (83-110); Lipase 71 U/L (8-78); Sodium 134 mmol/L (136-145)
[2019-02-16 16:03] LABS: Troponin I Less than 0.010 ng/mL (< 0.028)
[2019-02-16] MEDS ORDERED: Nitroglycerin 2% Ointment 1 INCH/1 GM Packet ONE (17:07)
[2019-02-16 18:17] LABS: Troponin I Less than 0.010 ng/mL (< 0.028)
[2019-02-16 20:13] VITALS: BMI 27.3
[2019-02-16] MEDS ORDERED: Acetaminophen 325 MG TAB PO PRN (20:30)
[2019-02-16] MEDS ORDERED: Ondansetron ODT 4 MG TAB PO PRN (20:30)
[2019-02-16] MEDS ORDERED: Ondansetron PF 4 MG/2 ML Vial IVP PRN (20:30)
[2019-02-16] MEDS ORDERED: Dextrose 5% in Water 1,000 ML IV PRN (21:28)
[2019-02-16] MEDS ORDERED: HumaLOG 300 UNITS/3 ML VIAL SC PRN (21:28)
[2019-02-16] MEDS ORDERED: Dextrose 50% Abboject 50 ML SYRINGE SLOW IVP PRN (21:28)
[2019-02-16 21:32] LABS: Troponin I 0.014 ng/mL (< 0.028)
[2019-02-16] MEDS ORDERED: Acetaminophen ER (8hr) 650 MG TAB PO PRN (21:52)
[2019-02-16] MEDS ORDERED: Polyethylene Glycol 3350 17 GM Packet PO PRN (21:52)
[2019-02-16] MEDS ORDERED: Gabapentin 300 MG CAP PO SCH (22:00)
[2019-02-16] MEDS ORDERED: Citalopram 20 MG TAB PO SCH (22:00)
[2019-02-16] MEDS ORDERED: Simvastatin 40 MG TAB PO SCH (22:00)
--- NOTE | 2019-02-16 22:29 | HP ---
PRIMARY CARE PHYSICIAN: Catia Raygoza DO CODE STATUS: The patient is DNR/DNI during my interview. TIME OF EVALUATION: 7:40 p.m. CHIEF COMPLAINT: Chest pain. HISTORY OF PRESENT ILLNESS: This is an 88-year-old female patient with past medical history of high cholesterol, diabetes type 2, kidney failure, coronary artery disease, hypertension, hypothyroidism, dementia, macular degeneration, came to the hospital after having an episode of chest pain that was in the middle of the chest, radiating to the left arm with no clear triggers, no alleviating factors. Symptoms are present from yesterday. The pain is dull in nature. Symptoms were reported as mild to moderate, 4/10. REVIEW OF SYSTEMS: CONSTITUTIONAL: No fever, chills, or generalized weakness. RESPIRATORY: No cough, sputum production, or shortness of breath. CARDIOVASCULAR: Chest pain. No palpitation. GASTROINTESTINAL: No nausea. No vomiting, diarrhea, or abdominal pain. 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 GENITOURINARY: No burning on urination. EXTREMITIES: No leg swelling. All other systems were reviewed and negative except for the findings mentioned above. PAST MEDICAL HISTORY: Reported in the HPI. PAST SURGICAL HISTORY: The patient does not recall. PSYCHIATRIC HISTORY: Anxiety and depression. SOCIAL HISTORY: No alcohol. No drugs. No smoking history. FAMILY HISTORY: Reviewed and non contributory for current presentation. KNOWN ALLERGIES: Alprazolam, codeine, diazepam, hydrocodone, acetaminophen, penicillins, sulfa, and Xanax. REPORTED MEDICATIONS: 1. Levothyroxine. 2. Lisinopril. 3. Namenda. 4. Metformin. 5. Simvastatin. 6. MiraLAX. PHYSICAL EXAMINATION: VITAL SIGNS: On presentation, blood pressure 180/120, heart rate 101, respiratory rate 20, temperature 98, and oxygen saturation was 93%. GENERAL APPEARANCE: The patient is alert, oriented, not in acute distress. HEENT: Eyes, normal conjunctivae. Moist oral mucosa. Anicteric. No JVD. RESPIRATORY: Bilateral air entry. No rales. No wheezes. Symmetric expansion. CARDIOVASCULAR: Normal rate, regular rhythm. No murmurs. No gallop. No edema. ABDOMEN: Soft. Normal bowel sounds. MUSCULOSKELETAL: Baseline range of motion and strength. No tenderness. SKIN: Warm and intact. No pallor. No rash. No redness. Peripheral pulses are present. Capillary refill seems to be intact. NEUROLOGIC: No evidence of any new focal weakness. Baseline speech. Cranial nerves seems to be intact. PSYCH: The patient is in good mood. No anxiety. Optimal judgment. IMAGING STUDIES: EKG shows sinus rhythm with frequent PVCs, WI 188, QRS 70, and QT corrected 445. Chest x-ray was reviewed. The patient has no acute cardiopulmonary abnormalities. Stable mild cardiomegaly. Abdominal x-ray was done. The patient has no acute abnormalities. LABORATORY DATA: Reviewed. The patient has white count 10.6, MCV 86.9, platelet count 341. Chemistry; sodium 134, potassium 4.0, chloride 100, carbon dioxide 22, anion gap 16, BUN 37. Creatinine 1.47, the previous one was 1.27. GFR 33, glucose 109, calcium 9.9, total bilirubin 0.4, AST 23, ALT 14, alkaline phosphatase 88. Troponin was negative x3. Beta natriuretic peptide was 171. Serum total protein 8.0, albumin 4.2, globulin 3.8, albumin to globulin ratio 7.1, and lipase 71. ASSESSMENT AND PLAN: The patient will be placed in the hospital with following medical problems: 1. Chest pain, rule out acute coronary syndrome. The patient's troponin has been negative. We will do stress test in the morning, follow result to get acute decision and to get Cardiology involved. 2. Chronic kidney disease, stage 3. GFR 33. We will monitor kidney function and adjust treatment as needed. 3. Hyponatremia. Sodium 134. This is mild, no need for any acute intervention. We will monitor sodium level. We will adjust treatment as needed. 4. High cholesterol. Low-cholesterol diet is advised. Reconcile home medications. 5. Controlled diabetes. We will reconcile home medications. Hold p.o. medications for now and put her on sliding scale for optimal control. 6. Hypertensive urgency with blood pressure 180/120 on presentation. Reconcile home medication if this blood pressure comes down to normal range. Monitor and treat accordingly. 7. Hypothyroidism. Continue hormone replacement. 8. Deep venous thrombosis prophylaxis. Job ID: [id number] [facility]
[2019-02-17] MEDS ORDERED: Levothyroxine Sodium 50 MCG TAB PO SCH (06:00)
[2019-02-17 06:21] LABS: Anion Gap 13 mmol/L (10-20); BUN (Urea Nitrogen) 31 mg/dL (9.8-20.1); Calc. Creatinine Clearance 29 mL/min (70-130); Calcium 9.4 mg/dL (7.8-10.44); Carbon Dioxide 22 mmol/L (23-31); Chloride 107 mmol/L (98-107); Estimated GFR-MDRD 40; Glucose 93 mg/dL (83-110); Potassium 4.5 mmol/L (3.5-5.1); Sodium 137 mmol/L (136-145)
[2019-02-17 07:53] LABS: Band 12 % (5-11); Eosinophils 1 % (0-10); Lymphocytes 33 % (21-51); MDiff Complete? YES; Mean Corpuscular HGB CONC 32.9 g/dL (32.0-36.0); Mean Corpuscular Hemoglobin 28.6 pg (27.0-31.0); Mean Corpuscular Volume 86.9 fL (78.0-98.0); Mean Platelet Volume 7.9 fL (7.4-10.4); Metamyelocyte 1 % (0-0); Monocytes 2 % (0-10); Neutrophil 51 % (42-75); Platelet Count 295 thou/uL (130-400); RBC Distribution Width 13.4 % (11.5-14.5); White Blood Cell (WBC) Count 6.2 thou/uL (4.8-10.8)
[2019-02-17] MEDS ORDERED: Clopidogrel Bisulfate 75 MG TAB PO SCH (09:00)
[2019-02-17] MEDS ORDERED: Gabapentin 300 MG CAP PO SCH (09:00)
[2019-02-17] MEDS ORDERED: Amlodipine 10 MG TAB PO SCH (09:00)
[2019-02-17] MEDS ORDERED: Furosemide 20 MG TAB PO SCH (09:00)
[2019-02-17] MEDS ORDERED: Lisinopril 20 MG TAB PO SCH (09:00)
[2019-02-17] MEDS ORDERED: Regadenoson 0.4 MG/5 ML SYRINGE ONE (10:25)
--- NOTE | 2019-02-17 11:21 | NM ---
Nuclear medicine Cardiac myocardial perfusion SPECT Ejection fraction study Wall motion cine: DATE:02/17/2019 8:35 PM TECHNIQUE: Number of days:2 Rest study: Technetium 99m-sestamibi (Cardiolite) dose:11 mCi Stress study: Technetium 99m-sestamibi (Cardiolite) dose:31.40 mCi INDICATION: Chest pain; full code FINDINGS: Cardiac (myocardial perfusion) SPECT There are no reversible myocardial perfusion defects. Ejection fraction study Left ventricular EF = 79% Wall motion cine There is normal wall motion and thickening. IMPRESSION: No evidence of reversible myocardial ischemia.
[2019-02-17] MEDS: Enoxaparin Sodium 40 MG/0.4 ML SYRINGE SC SCH ×2 (13:16→13:20)
--- NOTE | 2019-02-17 13:54 | PDOC.PN ---
- Subjective Encounter Start Date: 02/17/19 Encounter Start Time: 09:30 Subjective: no current chest pain or sob -: feels better - Objective Resuscitation Status - Order Detail: 02/16/19 22:14 Resuscitation Status Routine Co-Sign Provider: Resuscitation Status: DNAR: NO Resuscitation Discussed with: patient MAR Reviewed: Yes Vital Signs & Weight: Vital Signs (12 hours) Temp Pulse Resp BP Pulse Ox 02/17/19 13:17 71 02/17/19 11:10 97.5 F L 71 16 146/65 H 97 02/17/19 07:48 98.5 F 71 16 127/60 95 02/17/19 04:05 98.5 F 68 18 131/60 94 L Weight Weight 135 lb 1.6 oz I&O: 02/16/19 02/17/19 02/18/19 06:59 06:59 06:59 Output Total 1200 Balance -1200 Result Diagrams: 02/17/19 04:56 02/17/19 04:56 Additional Labs: Accuchecks 02/17/19 02/16/19 11:13 21:46 POC Glucose 161 H 123 H Phys Exam - Physical Examination HEENT: PERRLA, moist MMs Neck: no JVD, supple Respiratory: no wheezing, no rales Cardiovascular: RRR, no significant murmur Gastrointestinal: soft, non-tender, positive bowel sounds Musculoskeletal: no edema, pulses present Neurological: non-focal, moves all 4 limbs Psychiatric: normal affect, A&O x 3 Dx/Plan (1) Chest pain Code(s): R07.9 - CHEST PAIN, UNSPECIFIED Status: Acute Qualifiers: Chest pain type: unspecified Qualified Code(s): R07.9 - Chest pain, unspecified (2) GUEVARA (acute kidney injury) Code(s): N17.9 - ACUTE KIDNEY FAILURE, UNSPECIFIED Status: Acute (3) Hypothyroidism Code(s): E03.9 - HYPOTHYROIDISM, UNSPECIFIED Status: Chronic Qualifiers: Hypothyroidism type: unspecified Qualified Code(s): E03.9 - Hypothyroidism , unspecified (4) Dementia Code(s): F03.90 - UNSPECIFIED DEMENTIA WITHOUT BEHAVIORAL DISTURBANCE Status: Chronic Qualifiers: Dementia type: Alzheimer's disease Alzheimer's disease onset: unspecified onset Dementia behavioral disturbance: without behavioral disturbance Qualified Code(s): G30.9 - Alzheimer's disease, unspecified; F02.80 - Dementia in other diseases classified elsewhere without behavioral disturbance (5) CAD (coronary artery disease) Code(s): I25.10 - ATHSCL HEART DISEASE OF [place] CORONARY ARTERY W/O ANG PCTRS Status: Chronic Qualifiers: Coronary Disease-Associated Artery/Lesion type: [place] artery [place] vs. transplanted heart: [place] heart Associated angina: without angina Qualified Code(s): I25.10 - Atherosclerotic heart disease of [place] coronary artery without angina pectoris (6) Diabetes mellitus type 2 in nonobese Code(s): E11.9 - TYPE 2 DIABETES MELLITUS WITHOUT COMPLICATIONS Status: Chronic (7) Hypertension Code(s): I10 - ESSENTIAL (PRIMARY) HYPERTENSION Status: Chronic Qualifiers: Hypertension type: essential hypertension Qualified Code(s): I10 - Essential (primary) hypertension - Plan stress test is -ve for reversible ischemia -: outpt f/u with in 3 weeks -: hemostable -: dc pt to [facility] * . Review of Systems - Medications/Allergies Allergies/Adverse Reactions: Allergies Allergy/AdvReac Type Severity Reaction Status Date / Time alprazolam [From Xanax] Allergy Verified 06/14/17 21:13 codeine Allergy Verified 08/23/16 09:45 diazepam Allergy Verified 08/23/16 09:45 hydrocodone Allergy Verified 08/23/16 09:45 Penicillins Allergy Verified 08/23/16 09:45 Sulfa (Sulfonamide Allergy Verified 08/23/16 09:45 Antibiotics) Medications: Current Medications Acetaminophen (Tylenol) 650 mg PO Q4H PRN PRN Reason: Headache/Fever/Mild Pain (1-3) Acetaminophen (Tylenol Er (8hr Arthritis Pain)) 650 mg PO Q6HR PRN PRN Reason: Pain Amlodipine Besylate (Norvasc) 10 mg PO DAILY [facility] Last Admin: 02/17/19 13:17 Dose: 10 mg Citalopram Hydrobromide (Celexa) 10 mg PO HS NORBERTO Clopidogrel Bisulfate (Plavix) 75 mg PO DAILY [facility] Last Admin: 02/17/19 13:16 Dose: 75 mg Dextrose/Water (Dextrose 50%) 25 gm SLOW IVP PRN PRN PRN Reason: Hypoglycemia Enoxaparin Sodium (Lovenox) 40 mg SC 0900 [facility] Last Admin: 02/17/19 13:20 Dose: 40 mg Furosemide (Lasix) 20 mg PO DAILY [facility] Last Admin: 02/17/19 13:17 Dose: 20 mg Gabapentin (Neurontin) 600 mg PO BID [facility] Last Admin: 02/17/19 13:17 Dose: 600 mg Glucagon (Glucagon) 1 mg IM PRN PRN PRN Reason: Hypoglycemia Dextrose/Water (D5w) 1,000 mls @ 0 mls/hr IV .Q0M PRN PRN Reason: Hypoglycemia Insulin Human Lispro (Humalog) 0 units SC .MILD SLIDING SCALE PRN PRN Reason: Mild Correctional Scale Isosorbide Mononitrate (Imdur Er) 30 mg PO DAILY [facility] Last Admin: 02/17/19 13:16 Dose: 30 mg Levothyroxine Sodium (Synthroid) 50 mcg PO 0600 [facility] Last Admin: 02/17/19 04:06 Dose: 50 mcg Lisinopril (Zestril) 20 mg PO DAILY [facility] Last Admin: 02/17/19 13:17 Dose: 20 mg Memantine (Namenda) 10 mg PO BID [facility] Last Admin: 02/17/19 13:16 Dose: 10 mg Ondansetron HCl (Zofran Odt) 4 mg PO Q6H PRN PRN Reason: Nausea/Vomiting Ondansetron HCl (Zofran) 4 mg IVP Q6H PRN PRN Reason: Nausea/Vomiting Polyethylene Glycol (Miralax) 17 gm PO DAILY PRN PRN Reason: Constipation Simvastatin (Zocor) 40 mg PO HS [facility]
[2019-02-17 17:06] VITALS: BP 118/55; TEMP 98.3
[2019-02-17] MEDS ORDERED: Simvastatin 40 MG TAB PO SCH (21:00)
[2019-02-17] MEDS ORDERED: Citalopram 20 MG TAB PO SCH (21:00)
--- NOTE | 2019-02-18 14:26 | DIS ---
DATE OF ADMISSION: 02/16/2019 DATE OF DISCHARGE: 02/17/2019 DISCHARGE DISPOSITION: To [facility]. PRIMARY DISCHARGE DIAGNOSES: 1. Chest pain, which is noncardiac. 2. Acute kidney injury, resolving. SECONDARY DISCHARGE DIAGNOSES: 1. Hypothyroidism. 2. Dementia. 3. Coronary artery disease. 4. Diabetes mellitus, type 2. 5. Hypertension. PROCEDURES DONE DURING HOSPITALIZATION: Abdominal x-ray one view done showed no acute abnormality. Chest x-ray done showed no acute cardiopulmonary abnormality. There is stable mild cardiomegaly. Nuclear stress test done showed normal wall motion and thickening. No evidence of reversible myocardial ischemia. Ejection fraction was 79%. H and H of 12 and 36, platelet count 295. Discharge BUN and creatinine are 31 and 1.26. Admitting BUN creatinine was 37 and 1.47. Troponin x3 negative. BNP 171. DISCHARGE MEDICATIONS: 1. Norvasc 10 mg daily. 2. Celexa 10 mg p.o. at bedtime. 3. Plavix 75 mg p.o. daily. 4. Lasix 20 mg daily. 5. Fluticasone nasal spray 2 sprays to each nostril daily. 6. Neurontin 600 mg p.o. twice daily. 7. Levothyroxine 50 mcg p.o. daily. 8. Lisinopril 20 mg daily. 9. Namenda 10 mg twice daily. 10. Glucophage 500 mg p.o. twice daily. 11. Multivitamin one tablet daily. 12. MiraLax 17 g p.o. daily. 13. Simvastatin 40 mg p.o. at bedtime. 14. Imdur extended release 30 mg p.o. daily. ALLERGIES: TO ALPRAZOLAM, CODEINE, DIAZEPAM, HYDROCODONE, PENICILLIN, AND SULFA. DISCHARGE PLAN: The patient to follow up with Dr. Hernandez in 2 weeks and primary care physician in 1 week. BRIEF COURSE DURING HOSPITALIZATION: The patient initially was sent from [facility] for complaints of chest pain with the pain radiating to left arm. In view of this history and significant past medical history, the patient was placed under observation to rule out ACS. She has had 3 sets of troponin done, which was negative. Nuclear stress test done showed no reversible ischemia. The patient had mild acute kidney injury on admission, which got resolved with gentle hydration. She has remained hemodynamically stable. The patient is being discharged back to group home at [facility]. A total of 35 minutes was spent on discharge plan. Please see a [id number] documentation for the day of discharge on [facility]. She needs to follow up with Dr. Hernandez in 2 weeks. Job ID: [id number] [facility]TD[facility]
--- NOTE | 2019-02-19 14:15 | STRESS ---
Acquisition Time: 2019-02-17 09:38:23 Total Exercise Time: 00:01:00 Test Indications: CHEST PAIN Medications: Protocol: LEXISCAN Max HR: 080 BPM 61% of Pred: 131 BPM Max BP: 120/080 mmHG Max Work Load: 1.0 METS RESTING ECG: NORMAL SINUS RHYTHM WITH NONSPECIFIC T-WAVE CHANGES AND FREQUENT PVCS SYMPTOMS: NONE NORMAL BP RESPONSE ECTOPY: NONE ECG STRESS: NO SIGNIFICANT CHANGES INTERPRETATION: AWAIT NUCLEAR IMAGES FOR DEFINITIVE DIAGNOSIS Confirmed by GISSELLE DANIELS ([id number]), magazine editor KEVIN CORONEL ([id number]) on 02/19/2019 2:15:02 PM Referred By: MD Teresita MCDERMOTT Confirmed By:GISSELLE DANIELS
== END 2019-02-17 18:17 ==
LOC: ERS 13:56 → 2SW 16:38
PROVIDERS: ADMIT Internal Medicine; ATTEND Internal Medicine
DX: R07.89 Other chest pain (principal); E78.00 Pure hypercholesterolemia, unspecified; I25.10 Atherosclerotic heart disease of native coronary artery without angina pectoris; E03.9 Hypothyroidism, unspecified; F03.90 Unspecified dementia, unspecified severity, without behavioral disturbance, psychotic disturbance, mood disturbance, and anxiety; F41.9 Anxiety disorder, unspecified; F32.9 Major depressive disorder, single episode, unspecified; I16.0 Hypertensive urgency; I12.9 Hypertensive chronic kidney disease with stage 1 through stage 4 chronic kidney disease, or unspecified chronic kidney disease; E11.22 Type 2 diabetes mellitus with diabetic chronic kidney disease; N18.3 Chronic kidney disease, stage 3 (moderate); N17.9 Acute kidney failure, unspecified; Z66 Do not resuscitate; Z79.02 Long term (current) use of antithrombotics/antiplatelets; Z79.51 Long term (current) use of inhaled steroids; Z79.84 Long term (current) use of oral hypoglycemic drugs; Z79.899 Other long term (current) drug therapy; Z88.0 Allergy status to penicillin; Z88.2 Allergy status to sulfonamides; Z88.5 Allergy status to narcotic agent; Z88.8 Allergy status to other drugs, medicaments and biological substances
CPT/HCPCS: 71045; 74018; 78452; 80048; 80053; 82962 ×2; 83690; 83880; 84484 ×2; 85025 ×2; 93005; 93017; 96372; 99285; A9500; G0378 ×2; 36415; 36416; J1650; J2785